=== PATIENT | female | born 1970 | race Asian ===

== ENCOUNTER → 2025-01-27 10:01 | Outpatient (REF) | payer OTHER, SELFPAY ==
[2025-01-27 15:10] LABS: Mumps Virus IgG Positive; Varicella Zoster IgG (VZV) Positive
== END ==
LOC: REG 10:01
PROVIDERS: ATTENDING PHYSICIAN Nurse Practitioner Family
DX: Z23 Encounter for immunization (principal)
CPT/HCPCS: 36415; 86480; 86735; 86762; 86765; 86787